=== PATIENT | male | born 1960 ===

== ENCOUNTER 2025-01-09 07:54 | Day surgery (SDC) | payer MEDICARE, OTHER ==
[~2025-01-09] VITALS: Ht 182.9 cm; Wt 104.2 kg
[~2025-01-09 07:54] MED LIST: ASPI81CH PO; LEVSOD25 PO; Lactated Ringer's 1,000 ML IV SCH; Prinivil10 MG PO
[2025-01-09] MEDS ORDERED: ROSUVASTATIN CA10 MG PO (08:38)
[2025-01-09] MEDS ORDERED: METO50ER PO (08:39)
[2025-01-09 09:02] VITALS: BP 149/89
[2025-01-09] MEDS ORDERED: Ipratropium/Albuterol SulF 2.5-0.5MG/3 ML Amp ONE (09:43)
[2025-01-09] MEDS ORDERED: Ipratropium/Albuterol SulF 2.5-0.5MG/3 ML Amp INH ONE (09:45)
[2025-01-09] MEDS ORDERED: propofoL 60 ML IV ONE (10:26)
--- NOTE | 2025-01-09 10:42 | NUR ---
01/09/25 1042 Monico Lorenzana MONITOR INTACT WITH CONTINUOUS PULSE OXIMETRY, CONTINUOUS END TITAL CO2, 3-LEAD EKG AND INTERMITTENT BLOOD PRESSURE. ANESTHESIA PER DR. WINTER
[2025-01-09 11:05] VITALS: BP 122/69
[2025-01-09 11:20] VITALS: BP 126/86
--- NOTE | 2025-01-09 11:36 | NUR ---
DISCHARGE NOTE PT A&OX4, BREATHING RA, VSS, TOLERATING PO FLUIDS, NO COMPLAINTS. AT BEDSIDE. PT EXPRESSED FRUSTRATION ABOUT LONG WAIT PRIOR TO PROCEDURE AND WAS WANTING TO LEAVE QUICKLY. Patient up to Ambulate independently. Gait steady. Discharge instructions reviewed with patient. Patient verbalizes understanding. Copy given to patient to take home. Discharged via wheelchair to private car for ride home.
== END 2025-01-09 11:33 | disposition home or self-care (01) ==
LOC: ORSCMMR 07:54 → ORD 09:30 → ORSCMMR 11:33
PROVIDERS: Internal Medicine Gastroenterology
PROC: 0DBP8ZX Excision of Rectum, Via Natural or Artificial Opening Endoscopic, Diagnostic (ICD-10-PCS; principal; 2025-01-09 09:30)
PROC: 0DBN8ZX Excision of Sigmoid Colon, Via Natural or Artificial Opening Endoscopic, Diagnostic (ICD-10-PCS; principal; 2025-01-09 09:30)
DX: Z12.11 Encounter for screening for malignant neoplasm of colon (principal); Z86.0100 Personal history of colon polyps, unspecified; K63.5 Polyp of colon; K62.1 Rectal polyp; R73.03 Prediabetes; G47.33 Obstructive sleep apnea (adult) (pediatric); I10 Essential (primary) hypertension; Z87.891 Personal history of nicotine dependence; J44.9 Chronic obstructive pulmonary disease, unspecified; I73.9 Peripheral vascular disease, unspecified; E03.9 Hypothyroidism, unspecified; Z79.899 Other long term (current) drug therapy
CPT/HCPCS: 82947; 88305; J2704; J7120